=== PATIENT | female | born 1980 | race Caucasian/White ===

== ENCOUNTER 2017-02-21 01:48 | Emergency (ER) | payer OTHER ==
--- NOTE | 2017-02-21 02:32 | ERNOTE ---
Upper Extremity HPI - General Extremities Pain Location: wrist: left Time Seen by Provider: 02/21/17 02:31 Source: patient, family, RN notes reviewed - Immun/Allergies/Home Medications Immunizations: IMMUNIZATION HX Immunizations Up to Date Yes History of Influenza Vaccine No Allergies/Adverse Reactions: Allergies Allergy/AdvReac Type Severity Reaction Status Date / Time No Known Allergies Allergy Verified 02/21/17 01:58 Home Medications: HOME MEDICATIONS Bupropion HCl [Wellbutrin Sr] 300 mg PO DAILY 02/21/17 [Last Taken Unknown] Cholecalciferol [Vitamin D] 1,000 unit PO DAILY 02/21/17 [Last Taken Unknown] Ginkgo Biloba [place] Extract [Ginkgo Biloba] 2 tab PO BID 02/21/17 [Last Taken Unknown] HYDROcodone/ACETAMINOPHEN [[place] 5-325 Tablet] 1 - 2 tab PO Q6H PRN #16 tab [Last Taken Unknown] - History of Present Illness Narrative: Patient states she went to feed the dog when she fell, striking her left wrist, causing immediate pain. She is right handed. She has had quite a bit of alcohol tonight. Review of Systems - Review of Systems Constitutional: Absent: recent illness, fever, chills EYE: Present: no symptoms reported ENT: Absent: ear pain, sore throat Respiratory: Absent: shortness of breath, cough Cardiology: Absent: chest pain, palpitations Gastrointestinal/Abdominal: Absent: nausea, vomiting, diarrhea, abdominal pain Genitourinary: Present: no symptoms reported Musculoskeletal: Present: muscle pain - left wrist, joint pain - left wrist, joint swelling - left wrist Skin: Present: no symptoms reported Neurological: Absent: anxiety, depressed, dizziness/light-headedness Endocrine: Present: no symptoms reported Hematologic/Lymphatic: Present: no symptoms reported Psych: Present: no symptoms reported - Patient's Past Medical History Patient History - Medical: Anemia, Other Patient History - Cardiac/Respiratory: No pertinent hx Patient History - Cancer: No Hx of Cancer Patient History - Surgical Procedures: Appendectomy, Tubal Ligation, Other Patient History - Other: None LMP (Calendar): 01/30/07 - Family History Mother Family History - Medical: Diabetes Type 2, Other Family History - Cardiac/Respiratory: Hypertension Father Family History - Medical: No pertinent hx Family History - Cardiac/Respiratory: Hypertension - Social History Living Situations: home Abuse History: No History of abuse Psych History: Hx of Depression, Current tx/ever been on anti-depressants or anti-anxiety meds Smoking Status: Current every day smoker Alcohol Use: occasionally Drug Use: none - Immunizations Immunizations Up to Date: Yes History of Influenza Vaccine: No Physical Exam - Physical Exam General Appearance: Present: wd/wn, alert, no apparent distress, other - intoxicated Head Exam: Present: normal inspection, no evidence of injury Eye Exam: Normal inspection: bilateral, EOMI: bilateral Ears, Nose, Throat: Present: normal ENT inspection, normal pharynx Neck: Present: normal inspection, nontender Respiratory: Present: no respiratory distress, normal breath sounds, no accessory muscle use, chest nontender, lungs clear Cardiovascular/Chest: Present: regular rate, rhythm, no murmur, normal peripheral pulses Gastrointestinal/Abdominal: Present: normal bowel sounds, nontender, nondistended, soft Back Exam: Present: normal inspection, normal range of motion Extremity Exam: Present: normal except -, decreased range of motion - left wrist /hand, bony tenderness - left wrist, joint swelling - left wrist Neurological Exam: Present: alert, oriented, normal mood/affect, no motor/ sensory deficits Skin Exam: Present: normal color, warm/dry Lymphatic Exam: Present: no adenopathy ED Progress - Vital Signs Patient's Vital Signs:: I have reviewed the patient's vital signs. Vital Signs: Vital Signs 02/21/17 01:53 Temperature 36.6 C Pulse Rate 113 H Respiratory 18 Rate Blood Pressure 116/87 O2 Sat by Pulse 100 Oximetry - X-Ray X-Ray #1 X-Ray: wrist Interpretation: Interp. by me X-ray Comments: Distal radius fracture, very mildly displaced. - Progress/Reassessment Chief Complaint: Wrist Injury/Pain Departure Clinical Impression: Closed fracture of left distal radius Qualifiers: Encounter type: initial encounter Fracture morphology: other intra-articular Qualified Code(s): S52.572A - Other intraarticular fracture of lower end of left radius, initial encounter for closed fracture - Departure Disposition: Home self-care Condition: Good Instructions: Cast or Splint Care, [id number], How to Use a Sling, Wrist Fracture Treated With Immobilization, [id number] Referrals: Toni Helms MD [Primary Care Provider] - (talk to Dr. Helms when you see him for your flu shot.) Steven Dubon MD [Staff Physician] - (Call Thursday for an appointment in the next 7-10 days.) Prescriptions: HYDROcodone/ACETAMINOPHEN [[place] 5-325 Tablet] 1 - 2 tab PO Q6H PRN #16 tab PRN Reason: Pain
[2017-02-21 03:39] VITALS: BP 123/74
== END 2017-02-21 03:37 | disposition home or self-care (01) ==
LOC: ER 01:48
PROC: 2W3DX1Z Immobilization of Left Lower Arm using Splint (ICD-10-PCS; principal; 2017-02-21)
DX: S52.572A Other intraarticular fracture of lower end of left radius, initial encounter for closed fracture (principal); W18.30XA Fall on same level, unspecified, initial encounter; Y93.89 Activity, other specified; Y92.9 Unspecified place or not applicable; Y99.9 Unspecified external cause status